=== PATIENT | female | born 1990 | race Caucasian/White ===

== ENCOUNTER 2024-05-28 16:13 | Outpatient (RCR) | payer BC, SELFPAY ==
--- OUTSIDE RECORDS SUMMARY | 2024-05-28 17:39 | XMS_ITS | Clinical Summary ---
Author Organization [facility] Address [address] [address] Phone Care Team Providers Care Braiding Machine Operator Name Role Phone Zac West MD Primary Care Provider +1 -[phone] Allergies No known active allergies Medications cholecalciferol (VITAMIN D-3) 400 unit capsule Act bradford fish oil-dha-epa 1,200144-216 mg capsule Take by mouth Active Active Problems Problem Noted Date Diagnosed Date Physical exam, annual 05/26/2023 Assessment & Plan (05/26/2023 4:26 PM CDT): Preventive exam; reviewed recommended preventive screenings and vaccinations. Encourage annual flu vaccine. Wear sunscreen/protective clothing when outdoors. Referral placed to genetics for further evaluation and recommendation. As of now recommend mammogram at age 40 and colonoscopy at age 45. Due for Pap 2026. Patient is a nonsmoker, social alcohol use only. Lipid screening 05/26/2023 Assessment & Plan (05/26/2023 4:28 PM CDT): Reviewed labs today with patient, cholesterol screening was normal. Encounter for well woman carl bear with routine gynecological exam 02/10/2022 Assessment & Plan (02/10/2022 10:54 AM ELECTRICAL TECH/PROJECT MANAGER): WWE: pap & breast exam completed today. Will call w/pap results when received. Instructed in SBE. To perform monthly in shower; preferably after menses. Aware that she may have some blood tinged discharge with wiping today after pap. Cervical cancer screening 02/10/2022 Assessment & Plan (02/10/2022 10:54 AM ELECTRICAL TECH/PROJECT MANAGER): No history of abnormal pap. Vitamin D deficiency 12/18/2021 Assessment & Plan (05/26/2023 4:27 PM CDT): Continues vitamin d supplement. Family history of Hall syndrome 12/18/2021 Assessment & Plan (05/26/2023 4:26 PM CDT): Updated referral to genetic counselor. No 1st relative with colon or breast cancer. Assessment & Plan (02/10/2022 10:55 AM ELECTRICAL TECH/PROJECT MANAGER): Previously referred to genetic counselor. No first degree relative with colon or breast cancer. Immunizations Immunization Administration Dates Next Due Influenza, Quadrivalent, Spl it, Preservative Free, Intramuscular 12/18/2021 Influenza, Unspecified 05/26/2023(Deferr ed: Patient Refused),11/14/2022(Deferred: Patient Refused),11/14/2020(Deferred: Patient Refused) Rho (D) Immune Globulin, IV or IM 04/07/2015, Family History Medical History Relation Name Comments Hypertension Father Prostate cancer Father Diabetes Mother Hypertension Mother Thyroid disease Mother Hall Syndrome Other Relation Name Status Comments Father Alive Mother Alive Other Social History Tobacco Use Types Packs/Day Years Used Date Smoking Tobacco: Former Cigarettes Q uit: 2018 Smokeless Tobacco: Never Tobacco Cessation:Counseling Given: Not Answered AUDIT-C Answer Date Recorded Q1: How often do you have a drink containing alc ohol? 2-4 times a month 12/18/2021 Average Number of Drinks Not on file 022 Frequency of Binge Drinking Not on file 05/2021 PHQ-2 Answer Date Recorded PHQ-2 Total Score (If total score is 3 or more points, staff should administer the PHQ-9) 0 05/26/2023 Personal Safety Answer Date Recorded Getting School Help Needed Not on file 02/14 Comments Unknown Sex and Gender Information Value Date Recorded Sex Assigned at Not on file Legal Sex Female 9:20 AM CDT Gender Identity Not on file Sexual Orientation Not on file Obstetrics History Last Filed Vital Signs Vital Sign Reading Time Taken Comments Blood Pressure 128/82 05/26/2023 3:48 PM CDT Pulse 90 05/26/2023 3:48 PM CDT Temperature 36.7 C (98 F) 05/26/2023 3:48 PM CDT Respiratory Rate 16 05/26/2023 3:48 PM CDT Oxygen Saturation 98% 05/26/2023 3:48 PM CDT Inhaled Oxygen Concentration - - Weight 61.5 kg (135 lb 9.6 oz) 05/26/2023 3:48 P M CDT Height 154.9 cm (5' 0.98) 05/26/2023 3:48 PM CD T Body Mass Index 25.63 05/26/2023 3:48 PM CDT Plan of Treatment Health Maintenance Due Date Last Done Comments Hepatitis C Screening 1990 DTaP/Tdap/Td Vaccine (1 - Tdap) 2001 Varicella Vaccines (1 of 2 - 13+ 2-dose series) 2003 Hepatitis B Screening 2008 Covid-19 Vaccine (3 - 2023-2 5 season) 2023 05/04/2020, 04/13/2020 Depression Screening 05/25/2024 05/26/2023, 02/10/2022, 12/18/2021 Regular Well Visit/Exam 18-64 05/25/2024, 02/10/2022 Influenza Vaccine (Season Ended) 2024 12/18/2021 Cervical Cancer Screening 02/10/2027 02/10/2022 HPV Vaccines Aged Out No longer eligi ble based on patient's age to complete this topic Pneumococcal vaccine <65 Aged Out No longer eligible based on patient's age to complete this topic Procedures Procedure Name Priority Date/Time Associated Diagnosis Comments PAP AND HIGH RISK HPV, REFLEX TO GENOTYPING Routine 02/10/2022 9:16 AM ELECTRICAL TECH/PROJECT MANAGER Encounter for well woman exam with routine gynecological exam Cervical cancer screening from Last 3 Months or Most Recently Relevant to Health Maintenance Results * Pap and High Risk HPV, reflex to Genotyping (02/10/2022 9:16 AM ELECTRICAL TECH/PROJECT MANAGER) Thin prep (Pap test) 02/10/2022 9:16 AM ELECTRICAL TECH/PROJECT MANAGER 02/10/2022 9:16 AM ELECTRICAL TECH/PROJECT MANAGER Narrative PATHOLOGY CH - 02/12/2022 4:20 PM ELECTRICAL TECH/PROJECT MANAGER [facility] Department of Pathology [address] [place] [address] Final Report with Addendum Note to Patients: This report may contain a detailed description of human tissue sent by a health care provider to the laboratory for pathologic evaluation. The content of this report is essential for diagnosis and may provide important critical findings. This information may be unfamiliar to patients to review without a medical professional present. It is advised that the patient review this report in the presence of a health care provider who can answer questions and explain the details. Patient Name: MADISYN GIBBONS Address: [address] [place] [address]- Gender: F : 1990 (Age: 31) Service: Location: N : [id number] [facility] #: [id number] Patient Type: SPECIMEN Taken: 02/10/2022 Received: 02/10/2022 Accessioned:: 02/11/2022 Reported: 02/12/2022 Physician(s): Ariella Masterson., F.N.P. Ariella Masterson., F.N.P. Diagnosis: Source of Specimen: SCREENING THIN PREP IMAGED PAP w/ HPV Specimen Adequacy: - Satisfactory for evaluation; endocervical/transformation zone component present General Category: - Negative for intraepithelial lesion or malignancy Interpretation/Results: - Numerous inflammatory cells present NIRAV Nagel(ASCP) Report Electronically Reviewed and Signed Out By NIRAV Nagel(ASCP) 02/12/2022 16:20:47Addenda: HPV Test Interpretation NEGATIVE for types 16, 18, 31, 33, 35, 39, 45, 51, 52, 56, 58, 59, 66 and 68. Test performed utilizing Gen-Probe Aptima assay. NIRAV Nagel(ASCP)Report Electronically Reviewed and Signed Out By NIRAV Nagel(ASCP) 02/12/2022 15:14:06 Specimen(s) Received: A: SCREENING THIN PREP IMAGED PAP w/ HPV Clinical History: Last Menstrual Period: 02/03/22 Menstrual History: Regular Cycles The Pap test is a screening test used to aid in the detection of cervical cancer and its precursors. It should not be the sole means by which malignant and premalignant lesions are diagnosed. Both false negative and false positive results may occur. It also has poor sensitivity for the detection of endometrial lesions and should not be used to evaluate suspected endometrial abnormalities. For these reasons it is most important to obtain Pap tests at regular intervals. The performance characteristics of some immunohistochemical stains, fluorescence in-situ hybridization tests and immunophenotyping by flow cytometry cited in this report (if any) were determined by the Surgical Pathology Department at [facility] as part of an ongoing director of quality improvement program and in compliance with federally mandated regulations drawn from the Clinical Laboratory Improvement Act of 1988 (CLIA '88). Some of these tests rely on the use of analyte specific reagents and are subject to specific labeling requirements by the US Food and Drug Administration. Such diagnostic tests may only be performed in a facility that is certified by the Department of Health and Human Services as a high complexity laboratory under CLIA '88. The FDA has determined that such clearance or approval is not necessary. This test is used for clinical purposes. It should not be regarded as investigational or for research. Nevertheless, federal rules concerning the medical use of analyte specific reagents require that the following disclaimer be attached to the report: This test was developed and its performance characteristics determined by the Surgical Pathology Department [facility]. It has not been cleared or approved by the U. S. Food and Drug Administration. Ariella Masterson NP LAB CYTOLOGY ORDERABLES [facility] al Result PATHOLOGY [address] [address] from Last 3 Months or Most Recently Relevant to Health Maintenance [place] [place] [address] [employer] [place] Care Teams Braiding Machine Operator Relationship Specialty Start Date End Date [place]ac [place] [address] PCP - General Family Medicine 12/18/21
--- OUTSIDE RECORDS SUMMARY | 2024-05-28 17:39 | XMS_ITS | Referral Summary ---
Author Organization [facility] Address [address] [facility] [address] [place] [address] Phone Care Team Providers Care Reinsurance Accountant Name Role Phone Zac West MD Primary Care Provider +1 -[phone] Allergies No known active allergies Medications cholecalciferol [...] 02/10/2022 Assessment & Plan (02/10/2022 10:54 AM FIELD CROP HARVEST WORKER): WWE: pap & breast exam completed today. Will call w/pap results when received. Instructed in SBE. To perform monthly in shower; preferably after menses. Aware that she may have some blood tinged discharge with wiping today after pap. Cervical cancer screening 02/10/2022 Assessment & Plan (02/10/2022 10:54 AM FIELD CROP HARVEST WORKER): No history of abnormal pap. Vitamin D deficiency 12/18/2021 Assessment & Plan (05/26/2023 4:27 PM CDT): Continues vitamin d supplement. Family history of Hall syndrome 12/18/2021 Assessment & Plan (05/26/2023 4:26 PM CDT): Updated referral to genetic counselor. No 1st relative with colon or breast cancer. Assessment & Plan (02/10/2022 10:55 AM FIELD CROP HARVEST WORKER): Previously referred to genetic counselor. No first degree relative with colon or breast cancer. Immunizations Immunization Administration Dates Next Due Influenza, Quadrivalent, Spl it, Preservative Free, Intramuscular 12/18/2021 Influenza, Unspecified 05/26/2023(Deferr ed: Patient Refused),11/14/2022(Deferred: Patient Refused),11/14/2020(Deferred: Patient Refused) Rho (D) Immune Globulin, IV or IM 04/07/2015, Social History Tobacco Use Types Packs/Day Years [...] on file Sexual Orientation Not on file Last Filed Vital Signs Vital Sign Reading [...] 05/26/2023 3:48 PM CDT Plan of Treatment Not on file Procedures Procedure Name Priority Date/Time Associated Diagnosis Comments PAP AND HIGH RISK HPV, REFLEX TO GENOTYPING Routine 02/10/2022 9:16 AM FIELD CROP HARVEST WORKER Encounter for well woman exam with routine gynecological exam Cervical cancer screening from Last 3 Months or Most Recently Relevant to Health Maintenance Results * Pap and High Risk HPV, reflex to Genotyping (02/10/2022 9:16 AM FIELD CROP HARVEST WORKER) Thin prep (Pap test) 02/10/2022 9:16 AM FIELD CROP HARVEST WORKER 02/10/2022 9:16 AM FIELD CROP HARVEST WORKER Narrative PATHOLOGY CH - 02/12/2022 4:20 PM FIELD CROP HARVEST WORKER [facility] Department of Pathology [address] [place] [address] Final Report with Addendum Note to Patients: [...] the details. Patient Name: MADISYN GIBBONS Address: [address] [place] [address]- Gender: F : 1990 (Age: 31) Service: Location: [facility] #: [id number] Patient Type: SPECIMEN Taken: 02/10/2022 Received: 02/10/2022 Accessioned:: 02/11/2022 Reported: 02/12/2022 Physician(s): Lisset Martin F.N.P. Diagnosis: Source of Specimen: SCREENING THIN [...] Nagel(ASCP)Report Electronically Reviewed and Signed Out By ASUNCION NagelASCP) 02/12/2022 15:14:06 Specimen(s) Received: A: SCREENING THIN [...] determined by the Surgical Pathology Department at [facility] as part of an ongoing quality control auditor program and in compliance with federally mandated [...] characteristics determined by the Surgical Pathology Department [facility]. It has not been cleared or approved by the U. S. Food and Drug Administration. Ariella Masterson NP LAB [place]TOLOGY [place] [address] [place] [address] from Last 3 Months or Most Recently Relevant to Health Maintenance Insurance [employer] [place] [employer] [place] Care Teams Reinsurance Accountant Relationship Specialty Start Date End Date Zac West MD [address] [place] [address] PCP - General Family Medicine 12/18/21
[2024-05-29] MEDS: RHO(D) IMMUNE GLOBULIN 300 MCG/2 ML SYRINGE IM (17:23)
== END 2024-08-26 23:59 | disposition home or self-care (01) ==
LOC: ANHLAB 16:13
PROVIDERS: PCP Family Medicine Adolescent Medicine; Visit Provider Obstetrics & Gynecology
DX: Z36.89 Encounter for other specified antenatal screening (principal); Z29.13 Encounter for prophylactic Rho(D) immune globulin
CPT/HCPCS: 36415; 85461; 86850; 86900; 86901; 90384; 96372; J2790

== ENCOUNTER 2024-06-19 15:27 | Outpatient (RCR) | payer BC, SELFPAY | END 2024-09-03 11:10 | disposition home or self-care (01) | LOC: ANHDMC 15:27 | PROVIDERS: PCP Family Medicine Adolescent Medicine; Visit Provider Obstetrics & Gynecology | DX: O24.319 Unspecified pre-existing diabetes mellitus in pregnancy, unspecified trimester (principal); Z3A.00 Weeks of gestation of pregnancy not specified; Z71.89 Other specified counseling | CPT/HCPCS: G0108 ==

== ENCOUNTER 2024-07-24 17:07 | Outpatient (RCR) | payer BC, SELFPAY ==
[2024-07-19 16:34] VITALS: BP 132/77; PULSE 78
[2024-07-24 17:44] LABS: Add Urine Microscopic? YES; Appearance Urine Clear (Clear); Bacteria Urine None Seen /hpf; Bilirubin Urine Negative (Negative); Blood Urine Negative (Negative); Color Urine Yellow (Yellow); Glucose Urine UA Negative (Negative); Ketones Urine Trace mg/dL (Negative); Leukocyte Esterase Ur Trace LEU/UL (Negative); Nitrate Urine Negative (Negative); Non Pathogenic Casts 0-2; Protein Urine 3+ mg/dL (Negative); RBC Urine 0-2 /hpf (0-2); Specific Grav Ur 1.016 (1.001-1.035); Squamous Epithelial Cell Urine Few /hpf (Few)
[2024-07-24 17:46] LABS: Basophils Percent Auto 0.2 % (0.2-1.2); Eosinophils Absolute Auto 0.1 K/mm3 (0-0.3); Eosinophils Percent Auto 0.5 % (0-4.4); Hematocrit 32.1 % (37.0-47.0); Hemoglobin 10.9 g/dL (12.0-15.0); Immature Granulocyte Absolute 0.07 K/mm3 (0.00-0.031); Immature Granulocyte Percent A 0.7 % (0-0.5); Lymphocytes Absolute Auto 2.12 K/mm3 (0.9-3.2); Lymphocytes Percent Auto 20.8 % (18.3-44.2); Mean Corpuscular Hemoglobin 30.5 pg (26-34); Mean Corpuscular Volume 89.9 fl (80-100); Mean Platelet Volume 11.5 fl (7.4-10.4); Monocytes Absolute Auto 0.9 K/mm3 (0.1-0.6); Monocytes Percent Auto 9.2 % (2.6-8.5); Neutrophils Percent Auto 68.6 % (45.5-73.1); Platelet Count Result 163 k/mm3 (150-375); Red Blood Count 3.57 M/mm3 (4.2-5.4); Red Cell Distribution Width 13.3 % (11.5-14.5); White Blood Count 10.2 K/mm3 (4.5-10.0)
[2024-07-24 17:53] LABS: Creatinine Urine 50.3 mg/dL
[2024-07-24 18:07] LABS: Alanine Aminotransferase 20 U/L (6-35); Albumin Level 3.4 g/dL (3.5-5.1); Alkaline Phosphatase 137 U/L (38-126); Anion Gap 7 mmol/L (4-12); Aspartate Amino Transferase 30 U/L (14-36); Bilirubin,Total 0.4 mg/dL (0.2-1.3); Blood Urea Nitrogen 17 mg/dL (7-17); Calcium 9.1 mg/dL (8.4-10.2); Carbon Dioxide 17 mmol/L (22-30); Chloride 107 mmol/L (98-107); Estimated Glomerular Filt Rate > 60; Glucose 79 mg/dL (65-110); Potassium 4.1 mmol/L (3.4-5.0); Sodium 131 mmol/L (137-145); Total Protein 6.1 g/dL (6.3-8.2); Uric Acid 6.9 mg/dL (2.5-7.5)
[2024-07-24 18:12] VITALS: BP 162/84; PULSE 67
[2024-07-24 18:51] LABS: Total Protein Urine Random 256 mg/dL; Ur Ttl Prot Creatinine Ratio 5.09 mg/mg (0-0.20)
--- NOTE | 2024-07-24 19:26 | PC.NURSE ---
Dr. Johnson responded to page. notified of patients lab results and blood pressures at this time. New orders received to send patient home with a 24 hour urine to be brought back tomorrow.
--- NOTE | 2024-07-24 19:45 | PC.NURSE ---
24 hour urine discussed with patient and questions answered at this time. Patient feeling comfortable going home.
== END 2024-08-04 07:04 | disposition home or self-care (01) ==
LOC: ANHOBOP 17:07
PROVIDERS: PCP Family Medicine Adolescent Medicine; Visit Provider Obstetrics & Gynecology
DX: O24.419 Gestational diabetes mellitus in pregnancy, unspecified control (principal); Z3A.35 35 weeks gestation of pregnancy; Z3A.36 36 weeks gestation of pregnancy
CPT/HCPCS: 36415; 59025; 80053; 81001; 82570; 84156; 84550; 85025; 87086

== ENCOUNTER 2024-07-25 20:06 | Outpatient (NON) | payer BC, SELFPAY ==
--- OUTSIDE RECORDS SUMMARY | 2024-07-25 20:12 | XMS_ITS | Referral Summary ---
Author Organization [facility] Address [address] [facility] [address] [place] [address] Phone Care Team Providers Care Pcb Designer Name Role Phone Zac West MD Primary Care Provider +1 -[phone] Allergies No known active allergies Medications cholecalciferol [...] 02/10/2022 Assessment & Plan (02/10/2022 10:54 AM JIG BORE OPERATOR): WWE: pap & breast exam completed today. Will call w/pap results when received. Instructed in SBE. To perform monthly in shower; preferably after menses. Aware that she may have some blood tinged discharge with wiping today after pap. Cervical cancer screening 02/10/2022 Assessment & Plan (02/10/2022 10:54 AM JIG BORE OPERATOR): No history of abnormal pap. Vitamin D deficiency 12/18/2021 Assessment & Plan (05/26/2023 4:27 PM CDT): Continues vitamin d supplement. Family history of Hall syndrome 12/18/2021 Assessment & Plan (05/26/2023 4:26 PM CDT): Updated referral to genetic counselor. No 1st relative with colon or breast cancer. Assessment & Plan (02/10/2022 10:55 AM JIG BORE OPERATOR): Previously referred to genetic counselor. No first [...] REFLEX TO GENOTYPING Routine 02/10/2022 9:16 AM JIG BORE OPERATOR Encounter for well woman exam with routine gynecological exam Cervical cancer screening from Last 3 Months or Most Recently Relevant to Health Maintenance Results * Pap and High Risk HPV, reflex to Genotyping (02/10/2022 9:16 AM JIG BORE OPERATOR) Thin prep (Pap test) 02/10/2022 9:16 AM JIG BORE OPERATOR 02/10/2022 9:16 AM JIG BORE OPERATOR Narrative PATHOLOGY CH - 02/12/2022 4:[address] [facility] Department of Pathology [address] [place] [address] Final Report with Addendum Note to Patients: [...] the details. Patient Name: MADISYN GIBBONS Address: [address] [place] [address]- Gender: F : 1990 (Age: 31) Service: Location: [facility] #: [id number] Patient Type: SPECIMEN Taken: 02/10/2022 Received: 02/10/2022 [...] determined by the Surgical Pathology Department at [facility] as part of an ongoing chemistry quality control analyst program and in compliance with federally mandated [...] characteristics determined by the Surgical Pathology Department [facility]. It has not been cleared or approved by the U. S. Food and Drug Administration. Ariella Masterson NP LAB CYTOLOGY [place] [address] [place] [address] from Last 3 Months or Most Recently Relevant to Health Maintenance Insurance [employer] [place] [employer] [place] Care Teams Pcb Designer Relationship Specialty Start Date End Date Zac West MD [address] [place] [address] PCP - General Family Medicine 12/18/21
--- OUTSIDE RECORDS SUMMARY | 2024-07-25 20:12 | XMS_ITS | Clinical Summary ---
Author Organization [facility] Address [address] [address] Phone Care Team Providers Care Operational Communication Chief Name Role Phone Zac West MD Primary Care Provider +1 -[phone] Allergies No known active allergies Medications cholecalciferol [...] 02/10/2022 Assessment & Plan (02/10/2022 10:54 AM QUALITY CONTROL MICROBIOLOGY SUPERVISOR): WWE: pap & breast exam completed today. Will call w/pap results when received. Instructed in SBE. To perform monthly in shower; preferably after menses. Aware that she may have some blood tinged discharge with wiping today after pap. Cervical cancer screening 02/10/2022 Assessment & Plan (02/10/2022 10:54 AM QUALITY CONTROL MICROBIOLOGY SUPERVISOR): No history of abnormal pap. Vitamin D deficiency 12/18/2021 Assessment & Plan (05/26/2023 4:27 PM CDT): Continues vitamin d supplement. Family history of Hall syndrome 12/18/2021 Assessment & Plan (05/26/2023 4:26 PM CDT): Updated referral to genetic counselor. No 1st relative with colon or breast cancer. Assessment & Plan (02/10/2022 10:55 AM QUALITY CONTROL MICROBIOLOGY SUPERVISOR): Previously referred to genetic counselor. No first [...] REFLEX TO GENOTYPING Routine 02/10/2022 9:16 AM QUALITY CONTROL MICROBIOLOGY SUPERVISOR Encounter for well woman exam with routine gynecological exam Cervical cancer screening from Last 3 Months or Most Recently Relevant to Health Maintenance Results * Pap and High Risk HPV, reflex to Genotyping (02/10/2022 9:16 AM QUALITY CONTROL MICROBIOLOGY SUPERVISOR) Thin prep (Pap test) 02/10/2022 9:16 AM QUALITY CONTROL MICROBIOLOGY SUPERVISOR 02/10/2022 9:16 AM QUALITY CONTROL MICROBIOLOGY SUPERVISOR Narrative PATHOLOGY CH - 02/12/2022 4:20 PM QUALITY CONTROL MICROBIOLOGY SUPERVISOR [facility] Department of Pathology [address] [place] [address] Final Report with Addendum Note to Patients: [...] the details. Patient Name: MADISYN GIBBONS Address: [address] [place] [address]- Gender: F : 1990 (Age: 31) Service: Location: N : [id number] [facility] #: [id number] Patient Type: SPECIMEN Taken: 02/10/2022 Received: 02/10/2022 [...] determined by the Surgical Pathology Department at [facility] as part of an ongoing quality control lab technician program and in compliance with federally mandated [...] characteristics determined by the Surgical Pathology Department [facility]. It has not been cleared or approved by the U. S. Food and Drug Administration. Ariella Masterson NP LAB CYTOLOGY ORDERABLES [facility] al Result PATHOLOGY [address] [place] [address] from Last 3 Months or Most Recently Relevant to Health Maintenance [place] [address] [email or web address] [place] Care Teams Operational Communication Chief Relationship Specialty Start Date End Date [place] [address] PCP - General Family Medicine 12/18/21
[2024-07-25 21:15] LABS: Collection Time Urine 24 HOURS
[2024-07-25 21:37] LABS: Patient Weight 160 Lbs; Total Volume 24 Hour Urine 1150 ml
[2024-07-25 21:49] LABS: Creatinine Clearance Urine 76.9 ml/min (75-125); Creatinine Urine 66.7 mg/dL; Total Protein Urine 24 Hr 1184 mg/24hr (28-141); Total Protein Urine Random 103 mg/dL
== END 2024-07-25 20:07 | disposition home or self-care (01) ==
LOC: ANHOBOP 20:11
PROVIDERS: PCP Family Medicine Adolescent Medicine; Visit Provider Obstetrics & Gynecology
DX: O13.9 Gestational [pregnancy-induced] hypertension without significant proteinuria, unspecified trimester (principal); Z3A.00 Weeks of gestation of pregnancy not specified
CPT/HCPCS: 81050; 82575; 84156

== ENCOUNTER 2024-07-27 21:18 | Outpatient (CLI) | payer BC, SELFPAY ==
--- OUTSIDE RECORDS SUMMARY | 2024-07-27 21:24 | XMS_ITS | Clinical Summary ---
Author Organization [facility] Address [address] [address] Phone Care Team Providers Care Pole Frame Construction Worker Name Role Phone Zac West MD Primary Care Provider +1 -[phone] Allergies No known active allergies Medications cholecalciferol [...] 02/10/2022 Assessment & Plan (02/10/2022 10:54 AM GUNNERY/ORDNANCE OFFICER): WWE: pap & breast exam completed today. Will call w/pap results when received. Instructed in SBE. To perform monthly in shower; preferably after menses. Aware that she may have some blood tinged discharge with wiping today after pap. Cervical cancer screening 02/10/2022 Assessment & Plan (02/10/2022 10:54 AM GUNNERY/ORDNANCE OFFICER): No history of abnormal pap. Vitamin D deficiency 12/18/2021 Assessment & Plan (05/26/2023 4:27 PM CDT): Continues vitamin d supplement. Family history of Hall syndrome 12/18/2021 Assessment & Plan (05/26/2023 4:26 PM CDT): Updated referral to genetic counselor. No 1st relative with colon or breast cancer. Assessment & Plan (02/10/2022 10:55 AM GUNNERY/ORDNANCE OFFICER): Previously referred to genetic counselor. No first [...] REFLEX TO GENOTYPING Routine 02/10/2022 9:16 AM GUNNERY/ORDNANCE OFFICER Encounter for well woman exam with routine gynecological exam Cervical cancer screening from Last 3 Months or Most Recently Relevant to Health Maintenance Results * Pap and High Risk HPV, reflex to Genotyping (02/10/2022 9:16 AM GUNNERY/ORDNANCE OFFICER) Thin prep (Pap test) 02/10/2022 9:16 AM GUNNERY/ORDNANCE OFFICER 02/10/2022 9:16 AM GUNNERY/ORDNANCE OFFICER Narrative PATHOLOGY CH - 02/12/2022 4:20 PM GUNNERY/ORDNANCE OFFICER [facility] Department of Pathology [address] [place] [address] Final Report with Addendum Note to Patients: [...] the details. Patient Name: MADISYN GIBBONS Address: [address] [place] [address]- Gender: F : 1990 (Age: 31) Service: Location: N : [id number] [facility] #: [id number] Patient Type: SPECIMEN Taken: 02/10/2022 Received: 02/10/2022 [...] 68. Test performed utilizing Gen-Probe Aptima assay. INRAV Nagel(ASCP)Report Electronically Reviewed and Signed Out By [...] determined by the Surgical Pathology Department at [facility] as part of an ongoing quality officer program and in compliance with federally mandated [...] characteristics determined by the Surgical Pathology Department [facility]. It has not been cleared or approved by the U. S. Food and Drug Administration. Ariella Masterson NP LAB CYTOLOGY ORDERABLES [facility] al Result PATHOLOGY [address] [place] [address] from Last 3 Months or Most Recently Relevant to Health Maintenance [place] [address] [place] [address] [employer] [place] Care Teams Pole Frame Construction Worker Relationship Specialty Start Date End Date [place]ac [place] [address] PCP - General Family Medicine 12/18/21
--- OUTSIDE RECORDS SUMMARY | 2024-07-27 21:24 | XMS_ITS | Referral Summary ---
Author Organization [facility] Address [address] [facility] [address] [place] [address] Phone Care Team Providers Care Carcass Splitter Name Role Phone Zac West MD Primary Care Provider +1 [phone] Allergies No known active allergies Medications cholecalciferol [...] 02/10/2022 Assessment & Plan (02/10/2022 10:54 AM CATHEAD OPERATOR): WWE: pap & breast exam completed today. Will call w/pap results when received. Instructed in SBE. To perform monthly in shower; preferably after menses. Aware that she may have some blood tinged discharge with wiping today after pap. Cervical cancer screening 02/10/2022 Assessment & Plan (02/10/2022 10:54 AM CATHEAD OPERATOR): No history of abnormal pap. Vitamin D deficiency 12/18/2021 Assessment & Plan (05/26/2023 4:27 PM CDT): Continues vitamin d supplement. Family history of Hall syndrome 12/18/2021 Assessment & Plan (05/26/2023 4:26 PM CDT): Updated referral to genetic counselor. No 1st relative with colon or breast cancer. Assessment & Plan (02/10/2022 10:55 AM CATHEAD OPERATOR): Previously referred to genetic counselor. No [...] REFLEX TO GENOTYPING Routine 02/10/2022 9:16 AM CATHEAD OPERATOR Encounter for well woman exam with routine gynecological exam Cervical cancer screening from Last 3 Months or Most Recently Relevant to Health Maintenance Results * Pap and High Risk HPV, reflex to Genotyping (02/10/2022 9:16 AM CATHEAD OPERATOR) Thin prep (Pap test) 02/10/2022 9:16 AM CATHEAD OPERATOR 02/10/2022 9:16 AM CATHEAD OPERATOR Narrative PATHOLOGY CH - 02/12/2022 4:20 PM CATHEAD OPERATOR [facility] Department of Pathology [address] [place] [address] Final Report with Addendum Note to Patients: [...] the details. Patient Name: MADISYN GIBBONS Address: [address] [place] [address]- Gender: F : 1990 (Age: 31) Service: Location: [facility] #: [id number] Patient Type: SPECIMEN Taken: 02/10/2022 Received: 02/10/2022 [...] determined by the Surgical Pathology Department at [facility] as part of an ongoing senior supplier quality engineer program and in compliance with federally mandated [...] characteristics determined by the Surgical Pathology Department [facility]. It has not been cleared or approved by the U. S. Food and Drug Administration. Ariella Masterson NP LAB CYTOLOGY [place] [address] [place] [address] from Last 3 Months or Most Recently Relevant to Health Maintenance [place] [employer] [place] [employer] [place] [place] Care Teams Carcass Splitter Relationship Specialty Start Date End Date Zac West MD [address] [place] [address] PCP - General Family Medicine 12/18/21
[2024-07-27 21:44] VITALS: BP 164/91; PULSE 81
[2024-07-27 21:51] LABS: Basophils Percent Auto 0.2 % (0.2-1.2); Eosinophils Absolute Auto 0.1 K/mm3 (0-0.3); Eosinophils Percent Auto 0.6 % (0-4.4); Hematocrit 34.3 % (37.0-47.0); Hemoglobin 11.7 g/dL (12.0-15.0); Immature Granulocyte Absolute 0.06 K/mm3 (0.00-0.031); Immature Granulocyte Percent A 0.5 % (0-0.5); Lymphocytes Absolute Auto 2.95 K/mm3 (0.9-3.2); Mean Corpuscular HGB Conc 34.1 g/dl (32-36); Mean Corpuscular Hemoglobin 30.5 pg (26-34); Mean Corpuscular Volume 89.3 fl (80-100); Mean Platelet Volume 11.3 fl (7.4-10.4); Monocytes Absolute Auto 1.2 K/mm3 (0.1-0.6); Monocytes Percent Auto 10.5 % (2.6-8.5); Neutrophils Percent Auto 62.2 % (45.5-73.1); Platelet Count Result 181 k/mm3 (150-375); Red Blood Count 3.84 M/mm3 (4.2-5.4); Red Cell Distribution Width 13.4 % (11.5-14.5); White Blood Count 11.3 K/mm3 (4.5-10.0)
[2024-07-27 21:58] LABS: Add Urine Microscopic? YES; Appearance Urine Clear (Clear); Bacteria Urine None Seen /hpf; Bilirubin Urine Negative (Negative); Blood Urine Negative (Negative); Color Urine Yellow (Yellow); Glucose Urine UA Negative (Negative); Ketones Urine Negative (Negative); Leukocyte Esterase Ur Trace LEU/UL (Negative); Nitrate Urine Negative (Negative); Non Pathogenic Casts 0-2; Protein Urine 3+ mg/dL (Negative); RBC Urine 0-2 /hpf (0-2); Squamous Epithelial Cell Urine Few /hpf (Few); Urobilinogen Urine 0.2 mg/dL (<2.0); WBC Urine 0-5 /hpf (0-3); pH Urine 6.5 (5.0-9.0)
[2024-07-27 22:00] VITALS: BP 168/98; PULSE 73
[2024-07-27 22:02] LABS: Alanine Aminotransferase 17 U/L (6-35); Albumin Level 3.5 g/dL (3.5-5.1); Alkaline Phosphatase 145 U/L (38-126); Anion Gap 7 mmol/L (4-12); Aspartate Amino Transferase 24 U/L (14-36); Bilirubin,Total 0.3 mg/dL (0.2-1.3); Blood Urea Nitrogen 17 mg/dL (7-17); Carbon Dioxide 20 mmol/L (22-30); Chloride 106 mmol/L (98-107); Estimated Glomerular Filt Rate > 60; Glucose 88 mg/dL (65-110); Potassium 4.5 mmol/L (3.4-5.0); Sodium 133 mmol/L (137-145); Total Protein 6.3 g/dL (6.3-8.2); Uric Acid 5.9 mg/dL (2.5-7.5)
[2024-07-27 22:04] LABS: Creatinine Urine 25.4 mg/dL
[2024-07-27 22:15] VITALS: BP 144/90; PULSE 86
[2024-07-27 22:26] LABS: Total Protein Urine Random 304 mg/dL; Ur Ttl Prot Creatinine Ratio 11.97 mg/mg (0-0.20)
[2024-07-27 22:30] VITALS: BP 147/93; PULSE 79
--- NOTE | 2024-07-27 22:39 | PC.NURSE ---
Call placed to Dr. Johnson, reported increased BP @ home 162/94, 172/110. No headache, vision changes, r sided pain, increased swelling. Labs, Vitals, FHR and CTX reported. Order to discharge pt home undelivered with plans to continue on for induction tuesday.
--- NOTE | 2024-07-27 22:48 | PC.NURSE ---
Pt discharged home undelivered per order from Dr. Johnson, discharge instructions explained to pt pre-e s/s discussed, pt stated understanding, all questions and concerns answered. Pt ambulated out of department with all belongings, S.O @ pt side.
== END 2024-07-27 22:48 | disposition home or self-care (01) ==
LOC: ANHOBOP 21:21 → ANHLDR 22:52
PROVIDERS: PCP Family Medicine Adolescent Medicine; Visit Provider Obstetrics & Gynecology
DX: O13.9 Gestational [pregnancy-induced] hypertension without significant proteinuria, unspecified trimester (principal); Z3A.00 Weeks of gestation of pregnancy not specified
CPT/HCPCS: 36415; 59025; 80053; 81001; 82570; 84156; 84550; 85025; 99199

== ENCOUNTER 2024-07-29 16:30 | Inpatient (IN) | payer BC, SELFPAY ==
[2024-07-29] VITALS (15 sets, daily range): BP systolic 135–170; BP diastolic 75–102; PULSE 72–101; RESP 16; TEMP 36.6
--- OUTSIDE RECORDS SUMMARY | 2024-07-29 16:40 | XMS_ITS | Clinical Summary ---
Author Organization [facility] Address [address] [address] Phone Care Team Providers Care Accreditation Manager Name Role Phone Zac West MD Primary Care Provider [phone] [phone] Allergies No known active allergies Medications cholecalciferol [...] 02/10/2022 Assessment & Plan (02/10/2022 10:54 AM PARAGLIDING INSTRUCTOR): WWE: pap & breast exam completed today. Will call w/pap results when received. Instructed in SBE. To perform monthly in shower; preferably after menses. Aware that she may have some blood tinged discharge with wiping today after pap. Cervical cancer screening 02/10/2022 Assessment & Plan (02/10/2022 10:54 AM PARAGLIDING INSTRUCTOR): No history of abnormal pap. Vitamin D deficiency 12/18/2021 Assessment & Plan (05/26/2023 4:27 PM CDT): Continues vitamin d supplement. Family history of Hall syndrome 12/18/2021 Assessment & Plan (05/26/2023 4:26 PM CDT): Updated referral to genetic counselor. No 1st relative with colon or breast cancer. Assessment & Plan (02/10/2022 10:55 AM PARAGLIDING INSTRUCTOR): Previously referred to genetic counselor. No first [...] REFLEX TO GENOTYPING Routine 02/10/2022 9:16 AM PARAGLIDING INSTRUCTOR Encounter for well woman exam with routine gynecological exam Cervical cancer screening from Last 3 Months or Most Recently Relevant to Health Maintenance Results * Pap and High Risk HPV, reflex to Genotyping (02/10/2022 9:16 AM PARAGLIDING INSTRUCTOR) Thin prep (Pap test) 02/10/2022 9:16 AM PARAGLIDING INSTRUCTOR 02/10/2022 9:16 AM PARAGLIDING INSTRUCTOR Narrative PATHOLOGY CH - 02/12/2022 4:20 PM PARAGLIDING INSTRUCTOR [facility] Department of Pathology [address] [place] [address] Final Report with Addendum Note to Patients: [...] the details. Patient Name: MADISYN GIBBONS Address: [address] [place] [address]- Gender: F : 1990 (Age: 31) Service: Location: N : [id number] [facility] #: [id number] Patient Type: SPECIMEN Taken: 02/10/2022 Received: 02/10/2022 [...] determined by the Surgical Pathology Department at [facility] as part of an ongoing senior quality manager program and in compliance with federally mandated [...] characteristics determined by the Surgical Pathology Department [facility]. It has not been cleared or approved by the U. S. Food and Drug Administration. Ariella Masterson NP LAB CYTOLOGY ORDERABLES [facility] al Result PATHOLOGY [address] [address] from Last 3 Months or Most Recently Relevant to Health Maintenance Insurance [place] [address] [employer] Care Teams Accreditation Manager Relationship Specialty Start Date End Date Zac West [place] [address] PCP - General Family Medicine 12/18/21
--- OUTSIDE RECORDS SUMMARY | 2024-07-29 16:40 | XMS_ITS | Referral Summary ---
Author Organization [facility] Address [address] [facility] [address] [place] [address] Phone Care Team Providers Care Sand Sifter Name Role Phone Zac West MD Primary Care Provider [phone] [phone] Allergies No known active allergies Medications cholecalciferol [...] 02/10/2022 Assessment & Plan (02/10/2022 10:54 AM WELL LOGGING CAPTAIN): WWE: pap & breast exam completed today. Will call w/pap results when received. Instructed in SBE. To perform monthly in shower; preferably after menses. Aware that she may have some blood tinged discharge with wiping today after pap. Cervical cancer screening 02/10/2022 Assessment & Plan (02/10/2022 10:54 AM WELL LOGGING CAPTAIN): No history of abnormal pap. Vitamin D deficiency 12/18/2021 Assessment & Plan (05/26/2023 4:27 PM CDT): Continues vitamin d supplement. Family history of Hall syndrome 12/18/2021 Assessment & Plan (05/26/2023 4:26 PM CDT): Updated referral to genetic counselor. No 1st relative with colon or breast cancer. Assessment & Plan (02/10/2022 10:55 AM WELL LOGGING CAPTAIN): Previously referred to genetic counselor. No first [...] REFLEX TO GENOTYPING Routine 02/10/2022 9:16 AM WELL LOGGING CAPTAIN Encounter for well woman exam with routine gynecological exam Cervical cancer screening from Last 3 Months or Most Recently Relevant to Health Maintenance Results * Pap and High Risk HPV, reflex to Genotyping (02/10/2022 9:16 AM WELL LOGGING CAPTAIN) Thin prep (Pap test) 02/10/2022 9:16 AM WELL LOGGING CAPTAIN 02/10/2022 9:16 AM WELL LOGGING CAPTAIN Narrative PATHOLOGY CH - 02/12/2022 4:20 PM WELL LOGGING CAPTAIN [facility] Department of Pathology [address] [place] [address] Final Report with Addendum Note to Patients: [...] the details. Patient Name: MADISYN GIBBONS Address: [address] [place] [address]- Gender: F : 1990 (Age: 31) Service: Location: [facility] #: [id number] Patient Type: SPECIMEN Taken: 02/10/2022 Received: 02/10/2022 [...] determined by the Surgical Pathology Department at [facility] as part of an ongoing quality lab technician program and in compliance with [...] characteristics determined by the Surgical Pathology Department [facility]. It has not been cleared or approved by the U. S. Food and Drug Administration. Ariella Masterson NP LAB CYTOLOGY [place] [address] [place] [address] from Last 3 Months or Most Recently Relevant to Health Maintenance [place] [employer] [place] [place] Care Teams Sand Sifter Relationship Specialty Start Date End Date Zac West MD [address] [place] [address] PCP - General Family Medicine 12/18/21
--- NOTE | 2024-07-29 17:52 | P.PNAN_ITS ---
Anes - Eval Pre Procedure Procedure: Labor epidural Date/Time: 07/29/24 17:52 Surgeon: chepe Preop Diagnosis: pain during labor Pre Op Diagnosis: IOL Patient Data Age: 34 Gender: F Height: Weight: Last Vital Signs Pulse 97 07/29/24 17:47 BP 155/95 H 07/29/24 17:47 Allergies Allergy/AdvReac Type Severity Reaction Status Date / Time No Known Allergies Allergy Unknown Verified 07/27/24 21:48 Home Medications ?Medication ?Instructions ?Recorded ?Confirmed ?Type vit no.95-ferrous 1 tablet PO DAILY 07/27/24 07/27/24 History fumarate 28 mg-folic acid 800 mcg tablet () Patient hx anesthesia problems: none Family hx anesthesia problems: none Results Review: All pre-operative results and documents have been reviewed as part of the pre- operative evaluation. [facility] Past Medical History Medical History (Updated 07/29/24 @ 17:53 by Elaine Gould CRNA) IUP (intrauterine ), incidental Obesity Gestational diabetes Family History Family History (Updated 07/27/24 @ 14:48 by Brenda Shultz RN) Father Hypertension Malignant neoplasm of prostate Diabetes 1.5, managed as type 2 Mother Hypertension Diabetes 1.5, managed as type 1 Grandparent Colon cancer Other Diabetes mellitus Prostate calculus Social History Social History Substance use: never Spiritual care concerns: No Exam Day of Procedure 07/29/24 17:52
--- OUTSIDE RECORDS SUMMARY | 2024-07-29 18:25 | XMS_ITS | Referral Summary ---
Author Organization [facility] Address [address] [facility] [address] [place] [address] Phone Care Team Providers Care Road Repairer Name Role Phone Zac West MD Primary Care Provider +1 [phone] Allergies No known active allergies Medications cholecalciferol [...] 02/10/2022 Assessment & Plan (02/10/2022 10:54 AM TECHNICAL RESEARCH SCIENTIST): WWE: pap & breast exam completed today. Will call w/pap results when received. Instructed in SBE. To perform monthly in shower; preferably after menses. Aware that she may have some blood tinged discharge with wiping today after pap. Cervical cancer screening 02/10/2022 Assessment & Plan (02/10/2022 10:54 AM TECHNICAL RESEARCH SCIENTIST): No history of abnormal pap. Vitamin D deficiency 12/18/2021 Assessment & Plan (05/26/2023 4:27 PM CDT): Continues vitamin d supplement. Family history of Hall syndrome 12/18/2021 Assessment & Plan (05/26/2023 4:26 PM CDT): Updated referral to genetic counselor. No 1st relative with colon or breast cancer. Assessment & Plan (02/10/2022 10:55 AM TECHNICAL RESEARCH SCIENTIST): Previously referred to genetic counselor. No first [...] REFLEX TO GENOTYPING Routine 02/10/2022 9:16 AM TECHNICAL RESEARCH SCIENTIST Encounter for well woman exam with routine gynecological exam Cervical cancer screening from Last 3 Months or Most Recently Relevant to Health Maintenance Results * Pap and High Risk HPV, reflex to Genotyping (02/10/2022 9:16 AM TECHNICAL RESEARCH SCIENTIST) Thin prep (Pap test) 02/10/2022 9:16 AM TECHNICAL RESEARCH SCIENTIST 02/10/2022 9:16 AM TECHNICAL RESEARCH SCIENTIST Narrative PATHOLOGY CH - 02/12/2022 4:20 PM TECHNICAL RESEARCH SCIENTIST [facility] Department of Pathology [address] [place] [address] Final Report with Addendum Note to Patients: [...] the details. Patient Name: MADISYN GIBBONS Address: [address] [place] [address]- Gender: F : 1990 (Age: 31) Service: Location: [facility] #: [id number] Patient Type: SPECIMEN Taken: 02/10/2022 Received: 02/10/2022 [...] determined by the Surgical Pathology Department at [facility] as part of an ongoing clinical quality analyst program and in compliance with federally [...] characteristics determined by the Surgical Pathology Department [facility]. It has not been cleared or approved by the U. S. Food and Drug Administration. Ariella Masterson NP LAB CYTOLOGY [place] [address] [place] [address] from Last 3 Months or Most Recently Relevant to Health Maintenance Insurance [employer] [place] [employer] [place] Care Teams Road Repairer Relationship Specialty Start Date End Date Zac West MD [address] [place] [address] PCP - General Family Medicine 12/18/21
--- OUTSIDE RECORDS SUMMARY | 2024-07-29 18:25 | XMS_ITS | Clinical Summary ---
Author Organization [facility] Address [address] [address] Phone Care Team Providers Care Barrel Raiser Name Role Phone Zac West MD Primary Care Provider +1 -[phone] Allergies No known active allergies Medications cholecalciferol [...] 02/10/2022 Assessment & Plan (02/10/2022 10:54 AM ELECTRICIAN MACHINE SHOP): WWE: pap & breast exam completed today. Will call w/pap results when received. Instructed in SBE. To perform monthly in shower; preferably after menses. Aware that she may have some blood tinged discharge with wiping today after pap. Cervical cancer screening 02/10/2022 Assessment & Plan (02/10/2022 10:54 AM ELECTRICIAN MACHINE SHOP): No history of abnormal pap. Vitamin D deficiency 12/18/2021 Assessment & Plan (05/26/2023 4:27 PM CDT): Continues vitamin d supplement. Family history of Hall syndrome 12/18/2021 Assessment & Plan (05/26/2023 4:26 PM CDT): Updated referral to genetic counselor. No 1st relative with colon or breast cancer. Assessment & Plan (02/10/2022 10:55 AM ELECTRICIAN MACHINE SHOP): Previously referred to genetic counselor. No first [...] REFLEX TO GENOTYPING Routine 02/10/2022 9:16 AM ELECTRICIAN MACHINE SHOP Encounter for well woman exam with routine gynecological exam Cervical cancer screening from Last 3 Months or Most Recently Relevant to Health Maintenance Results * Pap and High Risk HPV, reflex to Genotyping (02/10/2022 9:16 AM ELECTRICIAN MACHINE SHOP) Thin prep (Pap test) 02/10/2022 9:16 AM ELECTRICIAN MACHINE SHOP 02/10/2022 9:16 AM ELECTRICIAN MACHINE SHOP Narrative PATHOLOGY CH - 02/12/2022 4:20 PM ELECTRICIAN MACHINE SHOP [facility] Department of Pathology [address] [place] [address] Final Report with Addendum Note to Patients: [...] the details. Patient Name: MADISYN GIBBONS Address: [address] [place] [address]- Gender: F : 1990 (Age: 31) Service: Location: N : [id number] [facility] #: [id number] Patient Type: SPECIMEN Taken: 02/10/2022 Received: 02/10/2022 [...] determined by the Surgical Pathology Department at [facility] as part of an ongoing food quality tester program and in compliance with federally mandated [...] characteristics determined by the Surgical Pathology Department [facility]. It has not been cleared or approved by the U. S. Food and Drug Administration. Ariella Masterson NP LAB CYTOLOGY ORDERABLES [facility] al Result PATHOLOGY [address] [address] from Last 3 Months or Most Recently Relevant to Health Maintenance [place] [address] [employer] Care Teams Barrel Raiser Relationship Specialty Start Date End Date Zac West [place] [address] PCP - General Family Medicine 12/18/21
--- NOTE | 2024-07-29 18:30 | LDADM ---
This patient, Kiara Amin, was admitted to Labor/Delivery/Recovery 104 on 07/29/24 at 16:30. Plans for labor, pain management and were discussed with patient. Patient/family oriented to hospital policies and general routines including ID bracelet, bed and alarms, visiting hours, pain management, procedures, bathroom and other care routines, personal items, smoking policy, room service/diet and guest tray routines, infant security routines, and visiting hours. Patient/Family are encouraged to report perceived risks to care and to ask questions if they do not understand what they are told or what they should do. See [facility] for further documentation.
[2024-07-29] MEDS: DINOPROSTONE 10 MG VAG INSERT VAGINAL (19:03)
[2024-07-29 19:10] LABS: Basophils Percent Auto 0.2 % (0.2-1.2); Eosinophils Percent Auto 0.3 % (0-4.4); Hematocrit 33.6 % (37.0-47.0); Hemoglobin 11.4 g/dL (12.0-15.0); Immature Granulocyte Absolute 0.04 K/mm3 (0.00-0.031); Immature Granulocyte Percent A 0.4 % (0-0.5); Lymphocytes Absolute Auto 2.02 K/mm3 (0.9-3.2); Lymphocytes Percent Auto 21.4 % (18.3-44.2); Mean Corpuscular HGB Conc 33.9 g/dl (32-36); Mean Corpuscular Hemoglobin 29.9 pg (26-34); Mean Corpuscular Volume 88.2 fl (80-100); Mean Platelet Volume 11.8 fl (7.4-10.4); Monocytes Absolute Auto 0.7 K/mm3 (0.1-0.6); Monocytes Percent Auto 7.6 % (2.6-8.5); Neutrophils Absolute Auto 6.6 K/mm3 (1.3-6.7); Neutrophils Percent Auto 70.1 % (45.5-73.1); Platelet Count Result 189 k/mm3 (150-375); Red Blood Count 3.81 M/mm3 (4.2-5.4); Red Cell Distribution Width 13.4 % (11.5-14.5); White Blood Count 9.4 K/mm3 (4.5-10.0)
[2024-07-29] MEDS: LABETALOL HCL INJ 100 MG/20 ML VIAL 20 MG IV PUSH (19:20)
[2024-07-29 19:43] LABS: Alanine Aminotransferase 17 U/L (6-35); Albumin Level 3.4 g/dL (3.5-5.1); Alkaline Phosphatase 148 U/L (38-126); Anion Gap 5 mmol/L (4-12); Aspartate Amino Transferase 30 U/L (14-36); Bilirubin,Total 0.4 mg/dL (0.2-1.3); Blood Urea Nitrogen 14 mg/dL (7-17); Calcium 9.2 mg/dL (8.4-10.2); Carbon Dioxide 19 mmol/L (22-30); Chloride 108 mmol/L (98-107); Estimated Glomerular Filt Rate > 60; Glucose 127 mg/dL (65-110); Potassium 3.8 mmol/L (3.4-5.0); Sodium 132 mmol/L (137-145); Total Protein 6.1 g/dL (6.3-8.2); Uric Acid 6.1 mg/dL (2.5-7.5)
[2024-07-29 20:10] LABS: Syphilis IgG/IgM Antibody Non-Reactive (Nonreactive)
[2024-07-29 20:37] LABS: Creatinine Urine 244.6 mg/dL
[2024-07-29 20:40] LABS: Add Urine Microscopic? YES; Appearance Urine Clear (Clear); Bacteria Urine None Seen /hpf; Bilirubin Urine Negative (Negative); Blood Urine Negative (Negative); Color Urine Dark Yellow (Yellow); Glucose Urine UA Negative (Negative); Ketones Urine 1+ mg/dL (Negative); Leukocyte Esterase Ur Negative LEU/UL (Negative); Need Manual Microscopic Reviewed; Nitrate Urine Negative (Negative); Protein Urine 3+ mg/dL (Negative); RBC Urine 0-2 /hpf (0-2); Specific Grav Ur 1.032 (1.001-1.035); Squamous Epithelial Cell Urine Occasional /hpf (Few); WBC Urine 0-5 /hpf (0-3); pH Urine 5.5 (5.0-9.0)
[2024-07-29 20:50] LABS: Total Protein Urine Random > 600 mg/dL
[2024-07-29 20:54] LABS: HIV 1/2 Ab P24 Ag Result Negative (Negative)
[2024-07-29 23:03] LABS: Glucose Point of Care 85 mg/dl (65-105)
[2024-07-30] VITALS (195 sets, daily range): BP systolic 128–179; BP diastolic 71–110; PULSE 64–136; RESP 14–16; TEMP 36.8–37.7; O2SAT 94–99
[2024-07-30 03:11] LABS: Glucose Point of Care 70 mg/dl (65-105)
[2024-07-30] MEDS: OXYTOCIN 30 UNITS/NS 500 ML 30 UNITS/500 ML BAG IV CONT (05:30)
[2024-07-30] MEDS: LACTATED RINGERS 1,000 ML 125 ML IV CONT ×3 (05:30→14:42)
[2024-07-30] MEDS: fentaNYL CITRATE INJ (*CRX) 100 MCG/2 ML VIAL IV PUSH (06:08)
[2024-07-30 08:01] LABS: Glucose Point of Care 83 mg/dl (65-105)
--- NOTE | 2024-07-30 08:54 | PM.IMHP ---
H&P: HPI History of Present Illness Date/Time: 07/30/24 08:54 Chief Complaint: Here for induction of labor. Narrative: 34 y/o at 37 1/7 weeks with A1DM, now with preeclampsia based on 24 hour urine protein. Comfortable with epidural. Review of Systems Review of Systems: All systems reviewed & are unremarkable except as noted in HPI and below PMFSH Past Medical History Medical History IUP (intrauterine ), incidental Obesity Gestational diabetes Family History Family History Father Hypertension Malignant neoplasm of prostate Diabetes 1.5, managed as type 2 Mother Hypertension Diabetes 1.5, managed as type 1 Grandparent Colon cancer Other Diabetes mellitus Prostate calculus Social History Social History Smoking status: Former smoker Tobacco type: cigarettes and e-cigarettes/vaping Second hand tobacco smoke exposure: No Smoking end date: 07/29/24 Substance use: never Do You Feel Safe in your Home?: Yes Lack of Transportation: No Lack of Food: Never True Current Housing: I Have Housing Concerned About Future Housing: No Difficulty Paying Gas/Electric Bills: No Difficulty Paying for Meds: No Currently Unemployed: No Education: Associate Degree Difficulty w/ Childcare or Family Care: No Spiritual care concerns: No Meds Home Medications and Allergies Home Medications ?Medication ?Instructions ?Recorded ?Confirmed ?Type vit no.95-ferrous 1 tablet PO DAILY 07/27/24 07/29/24 History fumarate 28 mg-folic acid 800 mcg tablet () Allergies Allergy/AdvReac Type Severity Reaction Status Date / Time No Known Allergies Allergy Unknown Verified 07/29/24 18:26 Vital Signs Vital Signs - 24 hr 07/29/24 17:00 07/29/24 17:47 07/29/24 18:01 Temperature Pulse Rate 97 95 Respiratory Rate Blood Pressure 155/95 H 152/96 H Pulse Oximetry Oxygen Delivery Room Air 07/29/24 18:31 07/29/24 19:05 07/29/24 19:20 Temperature Pulse Rate 93 101 H 78 Respiratory Rate Blood Pressure 170/102 H 162/101 H Pulse Oximetry Oxygen Delivery 07/29/24 19:23 07/29/24 19:31 07/29/24 19:46 Temperature Pulse Rate 84 78 85 Respiratory Rate Blood Pressure 146/87 H 140/86 139/91 H Pulse Oximetry Oxygen Delivery 07/29/24 20:01 07/29/24 20:16 07/29/24 20:31 Temperature Pulse Rate 79 79 78 Respiratory Rate Blood Pressure 137/79 147/85 H 141/88 H Pulse Oximetry Oxygen Delivery 07/29/24 21:01 07/29/24 21:31 07/29/24 22:01 Temperature 36.6 C Pulse Rate 76 73 72 Respiratory Rate 16 Blood Pressure 141/86 H 142/89 H 135/90 Pulse Oximetry Oxygen Delivery 07/29/24 23:01 07/30/24 00:01 07/30/24 01:01 Temperature Pulse Rate 74 64 68 Respiratory Rate Blood Pressure 148/75 H 137/75 134/82 Pulse Oximetry Oxygen Delivery 07/30/24 02:03 07/30/24 03:01 07/30/24 04:01 Temperature Pulse Rate 74 79 88 Respiratory Rate Blood Pressure 139/94 H 153/89 H 148/92 H Pulse Oximetry Oxygen Delivery 07/30/24 06:19 07/30/24 06:31 07/30/24 06:59 Temperature Pulse Rate 82 76 83 Respiratory Rate Blood Pressure 179/90 H 154/90 H 163/110 H Pulse Oximetry 97 Oxygen Delivery 07/30/24 07:00 07/30/24 07:01 07/30/24 07:03 Temperature Pulse Rate 83 94 88 Respiratory Rate Blood Pressure 166/97 H 171/103 H 148/84 H Pulse Oximetry Oxygen Delivery 07/30/24 07:04 07/30/24 07:05 07/30/24 07:07 Temperature Pulse Rate 80 79 Respiratory Rate Blood Pressure 153/91 H 152/97 H Pulse Oximetry 98 Oxygen Delivery 07/30/24 07:09 07/30/24 07:11 07/30/24 07:13 Temperature Pulse Rate 81 88 74 Respiratory Rate Blood Pressure 142/97 H 134/89 142/92 H Pulse Oximetry 98 Oxygen Delivery 07/30/24 07:14 07/30/24 07:15 07/30/24 07:17 Temperature Pulse Rate 70 90 Respiratory Rate Blood Pressure 153/97 H 135/91 H Pulse Oximetry 97 Oxygen Delivery 07/30/24 07:19 07/30/24 07:21 07/30/24 07:23 Temperature Pulse Rate 75 81 74 Respiratory Rate Blood Pressure 139/80 140/85 145/85 H Pulse Oximetry 98 Oxygen Delivery 07/30/24 07:24 07/30/24 07:25 07/30/24 07:27 Temperature Pulse Rate 74 84 Respiratory Rate Blood Pressure 142/86 H 131/86 Pulse Oximetry 98 Oxygen Delivery 07/30/24 07:29 07/30/24 07:31 07/30/24 07:33 Temperature Pulse Rate 79 73 86 Respiratory Rate Blood Pressure 131/87 139/89 133/81 Pulse Oximetry 97 Oxygen Delivery 07/30/24 07:34 07/30/24 07:35 07/30/24 07:37 Temperature Pulse Rate 75 83 Respiratory Rate Blood Pressure 131/84 128/84 Pulse Oximetry 97 Oxygen Delivery 07/30/24 07:39 07/30/24 07:41 07/30/24 07:43 Temperature 37.1 C Pulse Rate 72 97 81 Respiratory Rate Blood Pressure 135/84 132/88 133/92 H Pulse Oximetry 97 Oxygen Delivery 07/30/24 07:44 07/30/24 07:49 07/30/24 07:54 Temperature Pulse Rate Respiratory Rate Blood Pressure Pulse Oximetry 98 97 98 Oxygen Delivery 07/30/24 07:59 07/30/24 08:01 07/30/24 08:04 Temperature Pulse Rate 66 Respiratory Rate Blood Pressure 129/75 Pulse Oximetry 98 97 Oxygen Delivery 07/30/24 08:09 07/30/24 08:14 07/30/24 08:16 Temperature Pulse Rate 72 Respiratory Rate Blood Pressure 129/78 Pulse Oximetry 97 96 Oxygen Delivery 07/30/24 08:19 07/30/24 08:24 07/30/24 08:29 Temperature Pulse Rate Respiratory Rate Blood Pressure Pulse Oximetry 96 96 95 Oxygen Delivery 07/30/24 08:31 07/30/24 08:34 07/30/24 08:39 Temperature Pulse Rate 70 Respiratory Rate Blood Pressure 128/73 Pulse Oximetry 94 94 Oxygen Delivery 07/30/24 08:44 07/30/24 08:46 07/30/24 08:49 Temperature Pulse Rate 74 Respiratory Rate Blood Pressure 139/71 Pulse Oximetry 94 98 Oxygen Delivery Exam Const: Orientation/consciousness: patient oriented x3 Other: Well-developed, well-nourished female in no acute distress. Neck: Thyroid: thyroid normal Lymphatic: no lymphadenopathy noted (in neck, axilla or inguinal nodes) Resp: Effort & Inspection: normal respiratory effort Auscultation: clear to auscultation bilaterally Cardio: Rate: regular rate Rhythm: regular rhythm Heart sounds: S1 normal heart sound present and S2 normal heart sound present GI: Other: ABD: Soft, nontender, nondistended, gravid. NST reactive. TOCO: contractions every 2-5 min. No guarding or rebound tenderness. No hepatosplenomegaly. : General: Yes no CVA tenderness Other: Cervix 3/50/-2. AROM with clear fluid. Vertex. IUPC placed. Back/Spine/Pelvis: Back: no CVA tenderness Skin: General skin exam: normal color and no rashes or lesions noted Neuro: General: patient oriented x3 Extrem: Other: Extremities: nontender with no edema Psych: Mental Status: mental status grossly normal Affect: normal affect H&P: Results Labs Labs: Short CBC 07/29/24 Range/Units 18:48 WBC 9.4 (4.5-10.0) K/mm3 Hgb 11.4 L (12.0-15.0) g/dL Hct 33.6 L (37.0-47.0) % Plt Count 189 (150-375) k/mm3 BMP 07/29/24 18:48 Sodium 132 L Potassium 3.8 Chloride 108 H Carbon Dioxide 19 L BUN 14 Creatinine 0.64 L Glucose 127 H Calcium 9.2 Liver Function 07/29/24 Range/Units 18:48 Total Bilirubin 0.4 (0.2-1.3) mg/dL AST 30 (14-36) U/L ALT 17 (6-35) U/L Alkaline Phosphatase 148 H (38-126) U/L Albumin 3.4 L (3.5-5.1) g/dL Urine 07/29/24 Range/Units 18:45 Urine Color Dark yellow (Yellow) Urine Appearance Clear (Clear) Urine pH 5.5 (5.0-9.0) Ur Specific [place] 1.032 (1.001-1.035) Urine Protein 3+ H (Negative) mg/dL Urine Glucose (UA) Negative (Negative) mg/dL Assessment and Plan Assessment and plan (1) Term : Code(s): Z34.90 - Encounter for supervision of normal , unspecified, unspecified trimester Status: Acute Assessment and Plan: A: IUP at 37 1/7 weeks with preeclampsia, A1DM, here for induction of labor. P: S/p Cervidil, now receiving oxytocin. Anticipate . BP stable currently. Glc great. (2) Gestational diabetes: Code(s): O24.419 - Gestational diabetes mellitus in , unspecified control Status: Acute (3) Preeclampsia: Code(s): O14.90 - Unspecified pre-eclampsia, unspecified trimester Status: Acute
[2024-07-30 11:25] LABS: Glucose Point of Care 75 mg/dl (65-105)
--- NOTE | 2024-07-30 12:35 | PM.OBPNLAB ---
Pain Control Date/time seen: 07/30/24 12:35 Comfortable. Pelvic Exam Dilation (cm): 4 Effacement (%): 80 station: -2 Contractions Contraction frequency: 3 Status status: Category l Assessment and Plan Comments: Continue labor. Continue to watch bp and glc.
[2024-07-30] MEDS: ACETAMINOPHEN 500 MG TABLET 1000 MG PO (12:36)
[2024-07-30] MEDS: MAGNESIUM SULF 4 GM/WATER100ML 4 GM/100 ML BAG IVPB (13:07)
[2024-07-30] MEDS: MAGNESIUM SULF 20GM/WATER500ML 500 ML 50 MG IV CONT ×2 (13:42→23:47)
[2024-07-30 15:07] LABS: Glucose Point of Care 78 mg/dl (65-105)
--- NOTE | 2024-07-30 16:05 | S_PTH ---
PATIENT: Kiara Amin LOC: [facility] U#:[id number] AGE/SX: 34/F ROOM: 285 RE07/29/[address]: Dimitris Johnson MD : 1990 BED: 00 DIS: 08/01/2024 SPEC #: [id number] RECD: 07/31/24 07:56 STATUS: ADRIAN REQ #: [id number] RAYMUNDO: 07/30/24 16:[address]: Dimitris Johnson DEPT: [facility] Surgical RECD BY: Kenna Del Rosario ENTERED: 07/31/24 07:56 SP TYPE: Surgical OTHR DR: Romeo Al MD Tissues: A - Placenta Procedures: Hematoxylin and Eosin Stain Gross and Microscopic Level 5
--- NOTE | 2024-07-30 16:21 | PM.OBPRVD ---
OB - Vaginal Delivery Note Procedure Delivery date: 07/30/24 Events: Gestational Diabetes and Preeclampsia w severe features Induction method: Per Cervidil Protocol Delivery augmentation: Rupture of Membranes and Pitocin Delivery monitor: External FHT, External Uterine and Internal Uterine Route of delivery: Episiotomy description: None Laceration Description: Perineal - 2nd Degree Delivery repair: vicryl (3-0) Specimen: Yes (Cord blood, placenta) Quantitative Blood Loss (ml): 320 Anesthesia type: Epidural Disposition: PACU Complications: None Narrative: 34 y/o at 37 1/7 weeks gestation who presented to the hospital for induction of labor. Cervidil was placed overnight, withdrawn the next morning. Oxytocin was administered intravenously. Amniotomy was performed with return of clear fluid. She received an epidural for pain control. Blood glucose was normal throughout labor. She was given magnesium sulfate IV for bp in the severe range. Her labor progressed and her cervix dilated completely. She pushed with good effort and delivered the 's head to the perineum, followed by the body. The nose and mouth were bulb suctioned. After a delay, the cord was clamped and cut. The was handed off the field. Cord blood was collected. The placenta delivered spontaneously and was grossly normal in appearance. The usual 3 vessel cord was noted. A second degree midline perineal laceration was sustained. This was reapproximated using 3 0 Vicryl in the usual layered fashion. Excellent hemostasis resulted as did excellent reapproximation of the normal anatomy. Needle and instrument counts were correct. The patient was taken to recovery room in stable condition. The infant went to the nursery in stable condition. I was present and scrubbed for the entire delivery. Renick Baby Date of : 07/30/24 Time of : 16:02 Gestational Age by Date: 37 Infant gender: Female Weight (pounds): 6 Weight (ounces): 8 presentation: vertex position: Left Occiput Anterior Placenta delivery description: Spontaneous and Normal Configuration Cord Vessel Description: 3 Vessels and Delayed Cord Clamping score one minute: 7 score five minutes: 8
--- NOTE | 2024-07-30 16:25 | PM.OBDSVD ---
DS: Admitting Diagnosis Discharge Date 08/01/24 Admitting Diagnosis IUP at 37 1/7 weeks A1DM Preeclampsia DS: Discharge Diagnosis Discharge Diagnosis (1) (normal spontaneous vaginal delivery): Code(s): O80 - Encounter for full-term uncomplicated delivery Status: Acute (2) Gestational diabetes: Code(s): O24.419 - Gestational diabetes mellitus in , unspecified control Status: Acute (3) Preeclampsia: Code(s): O14.90 - Unspecified pre-eclampsia, unspecified trimester Status: Acute OB - DS: Summary OB Procedures : None and PIH Mgmt OB Procedures Intrapartum: Spontaneous Vag Delivery OB Procedures: : None Peripartum Data Laceration Description: Perineal - 2nd Degree Episiotomy description: None Time Spent with Patient Time attestation: Total time spent providing and/or coordinating discharge services: DS: Data Data Completed and Pending Labs on day of discharge: Labs from last 24 hours 07/30/24 07/30/24 07/30/24 15:04 11:22 07:43 WBC RBC Hgb Hct MCV MCH MCHC RDW Plt Count MPV Immature Gran % (Auto) Neut % (Auto) Lymph % (Auto) [place] % (Auto) Eos % (Auto) Baso % (Auto) Lymph # (Auto) [place] # (Auto) Eos # (Auto) Baso # (Auto) Abs Immat Gran (auto) Absolute Neuts (auto) Absolute Nucleated RBC Nucleated RBC % Sodium Potassium Chloride Carbon Dioxide Anion Gap BUN Creatinine Estim Creat Clear Calc Estimated GFR Glucose POC Capillary Glucose 78 75 83 Uric Acid Calcium Total Bilirubin AST ALT Alkaline Phosphatase Total Protein Albumin Urine Color Urine Appearance Urine pH Ur Specific [place] Urine Protein Urine Glucose (UA) Urine Ketones Ur Blood (Man) Urine Nitrate Urine Bilirubin Urine Urobilinogen Add Ur Microanalysis Leukocyte Esterase Rfl Urine RBC Urine WBC Ur Squamous Epith Cells Urine Bacteria Urine Casts U Random Total Protein Urine Creatinine Protein/Creat Ratio 2 Syphilis IgG/IgM Ab HIV 1&2 Ab/P24 Ag 4thGn Blood Type Antibody Screen Antibody Identification Antigen Identification ELPIDIO, IgG Interpret ELPIDIO, Poly Interpret ELPIDIO, Complement Interp 07/30/24 07/29/24 07/29/24 03:07 22:59 18:48 WBC 9.4 RBC 3.81 L Hgb 11.4 L Hct 33.6 L MCV 88.2 MCH 29.9 MCHC 33.9 RDW 13.4 Plt Count 189 MPV 11.8 H Immature Gran % (Auto) 0.4 Neut % (Auto) 70.1 Lymph % (Auto) 21.4 [place] % (Auto) 7.6 Eos % (Auto) 0.3 Baso % (Auto) 0.2 Lymph # (Auto) 2.02 [place] # (Auto) 0.7 H Eos # (Auto) 0.0 Baso # (Auto) 0.0 Abs Immat Gran (auto) 0.04 H Absolute Neuts (auto) 6.6 Absolute Nucleated RBC 0.000 Nucleated RBC % 0.0 Sodium 132 L Potassium 3.8 Chloride 108 H Carbon Dioxide 19 L Anion Gap 5 BUN 14 Creatinine 0.64 L Estim Creat Clear Calc Not Reportable Estimated GFR > 60 Glucose 127 H POC Capillary Glucose 70 85 Uric Acid 6.1 Calcium 9.2 Total Bilirubin 0.4 AST 30 ALT 17 Alkaline Phosphatase 148 H Total Protein 6.1 L Albumin 3.4 L Urine Color Urine Appearance Urine pH Ur Specific [place] Urine Protein Urine Glucose (UA) Urine Ketones Ur Blood (Man) Urine Nitrate Urine Bilirubin Urine Urobilinogen Add Ur Microanalysis Leukocyte Esterase Rfl Urine RBC Urine WBC Ur Squamous Epith Cells Urine Bacteria Urine Casts U Random Total Protein Urine Creatinine Protein/Creat Ratio 2 Syphilis IgG/IgM Ab Non-reactive HIV 1&2 Ab/P24 Ag 4thGn Negative Blood Type A Negative Antibody Screen Positive Antibody Identification Passive Due to RH Imm Glob Antigen Identification Not Reportable ELPIDIO, IgG Interpret Neg ELPIDIO, Poly Interpret Negative ELPIDIO, Complement Interp Not Performed 07/29/24 18:45 WBC RBC Hgb Hct MCV MCH MCHC RDW Plt Count MPV Immature Gran % (Auto) Neut % (Auto) Lymph % (Auto) [place] % (Auto) Eos % (Auto) Baso % (Auto) Lymph # (Auto) [place] # (Auto) Eos # (Auto) Baso # (Auto) Abs Immat Gran (auto) Absolute Neuts (auto) Absolute Nucleated RBC Nucleated RBC % Sodium Potassium Chloride Carbon Dioxide Anion Gap BUN Creatinine Estim Creat Clear Calc Estimated GFR Glucose POC Capillary Glucose Uric Acid Calcium Total Bilirubin AST ALT Alkaline Phosphatase Total Protein Albumin Urine Color Dark yellow Urine Appearance Clear Urine pH 5.5 Ur Specific [place] 1.032 Urine Protein 3+ H Urine Glucose (UA) Negative Urine Ketones 1+ H Ur Blood (Man) Negative Urine Nitrate Negative Urine Bilirubin Negative Urine Urobilinogen 1.0 Add Ur Microanalysis Reviewed Leukocyte Esterase Rfl Negative Urine RBC 0-2 Urine WBC 0-5 Ur Squamous Epith Cells Occasional Urine Bacteria None seen Urine Casts 6-10 U Random Total Protein > 600 Urine Creatinine 244.6 Protein/Creat Ratio 2 2.45 H Syphilis IgG/IgM Ab HIV 1&2 Ab/P24 Ag 4thGn Blood Type Antibody Screen Antibody Identification Antigen Identification ELPIDIO, IgG Interpret ELPIDIO, Poly Interpret ELPIDIO, Complement Interp Discharge Plan Discharge Attending physician on discharge: Dimitris Johnson Discharging Clinician: Dimitris Johnson Patient Disposition: Home Activity: pelvic rest Diet: regular Discharge Instructions: Call or return if temperature above 100.4? F, increased abdominal pain, increased vaginal bleeding or any new problems. Patient Language: Greek Stand Alone Forms: General Discharge Information Follow-up/Referrals: Dimitris Johnson MD [Physician] - 6 Weeks Discharge Medications: New ibuprofen 600 mg tablet 600 mg PO Q6H PRN (Reason: cramps) Qty: 30 0RF ferrous sulfate 325 mg (65 mg iron) tablet 325 mg PO DAILY Qty: 30 0RF nifedipine [Procardia XL] 60 mg tablet extended release 24hr 60 mg PO DAILY Qty: 30 1RF Continued PNV cmb#95-ferrous fumarate-FA [] 28 mg iron- 800 mcg tablet 1 tablet PO DAILY Date of admission: 07/29/24 16:30 Primary Care Provider: Romeo Al Admitting Provider: Dimitris Johnson Attending physician on admission: Dimitris Johnson Condition: Stable
[2024-07-30] MEDS: OXYTOCIN 30 UNITS/NS 500 ML 30 UNITS/500 ML BAG 125 UNITS IV CONT (16:29)
[2024-07-30] MEDS: NIFEdipine 30 MG TAB.ER.24 PO (18:35)
[2024-07-30] MEDS: IBUPROFEN 600 MG TABLET PO (18:35)
[2024-07-30] MEDS: BENZOCAINE 20% AER SPR (*SP) 56 GM CAN 1 SPRAY TOPICAL (19:13)
[2024-07-30] MEDS: WITCH HAZEL 40 PADS 1 PAD TOPICAL (19:13)
--- NOTE | 2024-07-30 19:32 | OBPPTRN ---
Patient transferred to post room #285 via wheelchair. Support person present. Oriented to unit, room, information board, rooming in, admission packet and security measures. Patient verbalizes understanding.
[2024-07-31] VITALS (8 sets, daily range): BP systolic 124–160; BP diastolic 78–99; PULSE 91–110; RESP 16–20; TEMP 36.4–36.8; O2SAT 97–100
[2024-07-31 05:13] LABS: Hematocrit 29.5 % (37.0-47.0); Hemoglobin 9.7 g/dL (12.0-15.0)
[2024-07-31] MEDS: LACTATED RINGERS 1,000 ML 75 ML IV CONT (08:10)
[2024-07-31] MEDS: LACTATED RINGERS 1,000 ML 75 ML (08:18)
--- NOTE | 2024-07-31 08:42 | P.PNOB_ITS ---
OB - PN: Subj Subjective Date/time seen: 07/31/24 08:42 Narrative: Pain OK. OB - PN: Obj Data Labs 07/31/24 04:13 07/29/24 18:48 Labs: Laboratory Results - last 24 hr 07/30/24 07/30/24 07/31/24 11:22 15:04 04:13 Hgb 9.7 L Hct 29.5 L POC Capillary Glucose 75 78 Blood Type A Negative Antibody Screen TNP Screen Negative Baby's Blood Type A pos Baby's ELPIDIO Positive Doses of RhIg Required 1 OB - PN A/P Plan day: 1 Comments: A: PPD#1, doing well. Preeclampsia, resolving. A1DM, s/p delivery. P: Continue Procardia XL 30 mg daily. Stop magnesium today. Routine care. Plan home tomorrow. Exam 2 Psych: Other: AVSS (BP improved after Procardia XL 30 mg) Urine output >5L. ABD soft, nontender, fundus firm EXT nontender NEURO: DTR 1+/4
[2024-07-31] MEDS: DOCUSATE SODIUM 100 MG CAPSULE PO ×2 (08:48→17:28)
[2024-07-31] MEDS: NIFEdipine 30 MG TAB.ER.24 PO (08:48)
[2024-07-31] MEDS: MULTIVIT/MIN/PREN/FOL AC/IRON TABLET 1 TAB PO (08:48)
[2024-07-31] MEDS: POLYSACCHARIDE IRON COMPLEX 150 MG CAPSULE PO ×2 (08:48→17:28)
[2024-07-31] MEDS: MAGNESIUM SULF 20GM/WATER500ML 500 ML 50 MG IV CONT (10:02)
[2024-07-31] MEDS: RHO(D) IMMUNE GLOBULIN 300 MCG/2 ML SYRINGE IM (10:41)
--- NOTE | 2024-07-31 10:50 | PC.NURSE ---
Introductions were made, then consulted with patient to assess needs related to . Discussed with mother her plans to feed her and the experience so far. She has been on Mag Sulfate and is not feeling well. She has a hospital breast pump but has not used it. Baby has been bottle feeding. Mom states that she may want to pump and bottle feed if she feels up for it, but doesn't desire to put baby to breast. Encouraged her to call out for assistance with the pump when she's ready. Resources provided for inpatient and outpatient services with the feeding sheet, mom/baby guide and name written on the communication board. Mother voiced understanding of information and will call if there is a request for assistance. Reported to the Primary RN.?
--- NOTE | 2024-07-31 17:30 | PC.NURSE ---
Patient set up with a breast pump due to her choice to pump and bottle feed. Mother was shown proper sizing and placement of flanges, pump settings, and cleaning of pump parts. Recommended 15 minutes of pumping both breasts simultaneously. Patient is aware that pumping should not hurt. She is encouraged to use the highest comfortable suction setting, gradually increasing the level as she pumps. Patient provided with a basin for cleaning parts between uses. Breast milk storage guidelines reviewed. Discussed use of expressed breast milk by placing drops of milk in baby?s mouth with a clean finger, bottle feeding, or mixing colostrum with a small volume of formula and feeding with a bottle.? Primary RN updated.??
--- NOTE | 2024-07-31 17:48 | WPDANLDPN2 ---
Anes-Prog Note L&D Date/Time: 07/31/24 17:48 Neuro status: Neuro function grossly intact. Cardiovascular status: normal Respiratory status: normal Airway patency: baseline Mental status: baseline Post-Op hydration status: normal Vital Signs: Last Vital Signs Temp 36.5 C 07/31/24 15:13 Pulse 107 H 07/31/24 15:13 Resp 20 07/31/24 15:13 BP 137/94 H 07/31/24 15:13 Pulse Ox 98 07/31/24 15:13 O2 Del Method Room Air 07/29/24 17:00 Pain score (VAS): 0 I/O: Intake & Output 07/31/24 07/31/24 07/31/24 07:59 15:59 23:59 Intake Total 900 1744.2 Output Total 1200 4650 Balance -300 -2905.8 Post-procedural complaints: none Patient feedback: Patient satisfied with anesthetic care.
[2024-07-31] MEDS: LABETALOL HCL 100 MG TABLET 200 MG PO (22:08)
[2024-08-01 00:40] VITALS: BP 141/91; PULSE 86; RESP 18; TEMP 36.8; O2SAT 100
[2024-08-01 04:10] VITALS: BP 152/96; PULSE 78; RESP 18; O2SAT 99
[2024-08-01 08:05] VITALS: BP 152/95; PULSE 99; RESP 16; TEMP 36.9; O2SAT 99
[2024-08-01] MEDS: NIFEdipine 30 MG TAB.ER.24 PO ×2 (08:45→08:55)
[2024-08-01] MEDS: DOCUSATE SODIUM 100 MG CAPSULE PO (08:45)
[2024-08-01] MEDS: POLYSACCHARIDE IRON COMPLEX 150 MG CAPSULE PO (08:45)
[2024-08-01] MEDS: MULTIVIT/MIN/PREN/FOL AC/IRON TABLET 1 TAB PO (08:45)
--- NOTE | 2024-08-01 08:51 | P.PNOB_ITS ---
OB - PN: Subj Subjective Date/time seen: 08/01/24 08:51 Narrative: Pain OK. Would like to go home. OB - PN: Obj Data Labs 07/31/24 04:13 07/29/24 18:48 Labs: Laboratory Results - last 24 hr 07/31/24 04:13 Blood Type A Negative Antibody Screen TNP Screen Negative Baby's Blood Type A pos Baby's ELPIDIO Positive Doses of RhIg Required 1 OB - PN A/P Plan Comments: A: PPD#2, doing well. Preeclampsia, resolving. BP still a little elevated. P: Home to f/u 6 weeks. Increase Procardia XL 30 to 60 mg. F/u bp check in 1-2 days. Exam 2 Psych: Other: AVSS ABD soft, nontender, fundus firm EXT nontender
--- NOTE | 2024-08-01 09:10 | PC.NURSE ---
Met with patient regarding pumping needs. She states that she did pump a few times and got some colostrum but that she prefers to stick with bottle feeding formula at this time. Dad asked when it would be 'too late' for her to initiate pumping. Reviewed that she can still attempt to pump at any time or when her milk 'comes in' but that the earlier she starts, the more likely it will be that she produces a good supply. Patient does have a breast pump at home in case she decides to pump. She is encouraged to call the office if she has any questions when she gets home. Patient verbalizes understanding and declines having any further questions or concerns. RN updated.
--- NOTE | 2024-08-01 10:00 | PC.NURSE ---
1000- Pt stated she wanted tdap. Once entering room to administer pt declined and stated she may decide to get outpatient
[2024-08-01] MEDS: SERTRALINE HCL 50 MG TABLET PO (12:36)
[2024-08-01 12:42] VITALS: BP 154/92; PULSE 110; RESP 18; TEMP 37.4; O2SAT 97
[2024-08-02 09:02] VITALS: BP 154/99; PULSE 94; RESP 18; O2SAT 98
[2024-08-02 09:34] LABS: Ur Ttl Prot Creatinine Ratio > 2.45 mg/mg (0-0.20)
--- NOTE | 2024-08-02 12:11 | PC.NURSE ---
repeated BP after Procardia taken at 1030 154/98, call to Dr. Johnson, message left on pager, notified of BP's and pt. is not symptomatic
--- NOTE | 2024-08-02 12:14 | PC.NURSE ---
Dr. Johnson ret'd call, requests that Kiara come to office tuesday or tuesday for BP check, Kiara notified and voices understanding
== END 2024-08-01 17:27 | disposition home or self-care (01) | DRG 807 ==
LOC: ANHLDR 07-30 16:26 → ANHOB2 07-30 19:34
PROVIDERS: Admitting Provider Obstetrics & Gynecology; PCP Family Medicine Adolescent Medicine; Visit Provider Obstetrics & Gynecology
DX: O24.429 Gestational diabetes mellitus in childbirth, unspecified control (principal); Z37.0 Single live birth; Z3A.37 37 weeks gestation of pregnancy; O14.14 Severe pre-eclampsia complicating childbirth; O70.1 Second degree perineal laceration during delivery
CPT/HCPCS: 36415; 80053; 81001; 82570; 82948; 84156; 84550; 85014; 85018; 85025; 85461; 86593; 86703; 86850; 86880; 86900; 86901; 86902; 88307; 90384; A9270; G0432; J2590; J2790; J2795; J3010; J3475; J7120

== ENCOUNTER 2024-08-06 10:30 | Outpatient (CLI) | payer BC, SELFPAY ==
[2024-08-06] VITALS (8 sets, daily range): BP systolic 129–153; BP diastolic 75–96; PULSE 78–88
[2024-08-06 11:23] LABS: Basophils Percent Auto 0.4 % (0.2-1.2); Eosinophils Absolute Auto 0.2 K/mm3 (0-0.3); Eosinophils Percent Auto 1.6 % (0-4.4); Hematocrit 38.4 % (37.0-47.0); Hemoglobin 12.8 g/dL (12.0-15.0); Immature Granulocyte Absolute 0.09 K/mm3 (0.00-0.031); Immature Granulocyte Percent A 0.8 % (0-0.5); Lymphocytes Absolute Auto 2.49 K/mm3 (0.9-3.2); Lymphocytes Percent Auto 23.5 % (18.3-44.2); Mean Corpuscular HGB Conc 33.3 g/dl (32-36); Mean Corpuscular Volume 89.9 fl (80-100); Mean Platelet Volume 9.5 fl (7.4-10.4); Monocytes Absolute Auto 0.7 K/mm3 (0.1-0.6); Monocytes Percent Auto 6.4 % (2.6-8.5); Neutrophils Absolute Auto 7.1 K/mm3 (1.3-6.7); Neutrophils Percent Auto 67.3 % (45.5-73.1); Platelet Count Result 279 k/mm3 (150-375); Red Blood Count 4.27 M/mm3 (4.2-5.4); Red Cell Distribution Width 13.7 % (11.5-14.5); White Blood Count 10.6 K/mm3 (4.5-10.0)
[2024-08-06 11:45] LABS: Alanine Aminotransferase 62 U/L (6-35); Albumin Level 4.1 g/dL (3.5-5.1); Alkaline Phosphatase 128 U/L (38-126); Anion Gap 9 mmol/L (4-12); Aspartate Amino Transferase 34 U/L (14-36); Bilirubin,Total 0.4 mg/dL (0.2-1.3); Blood Urea Nitrogen 13 mg/dL (7-17); Calcium 9.5 mg/dL (8.4-10.2); Carbon Dioxide 21 mmol/L (22-30); Chloride 108 mmol/L (98-107); Estimated Glomerular Filt Rate > 60; Glucose 92 mg/dL (65-110); Potassium 4.2 mmol/L (3.4-5.0); Sodium 138 mmol/L (137-145); Total Protein 7.2 g/dL (6.3-8.2); Uric Acid 5.4 mg/dL (2.5-7.5)
--- NOTE | 2024-08-06 11:56 | PC.NURSE ---
Dr. Roberto Roldan update that the pt having headache of 3/10 as well as elevated blood pressure. Pt reports having 169/100 at home. BP reported from assessment here. MD ordered pt start 200mg Labetalol BID. 1st dose to be given here. okay with pt going home after 1 hour blood pressure recheck.
--- NOTE | 2024-08-06 12:22 | P.PNOB_ITS ---
OB - Triage/Final Diagnosis Visit Information Date of evaluation: 08/06/24 Reason for evaluation: other (htn) Comments/Additional reasons for admission: I have assessed the risk for this patient, Kiara Amin, and determined that she would benefit from observation care. Evaluation Laboratory results: Laboratory Tests 08/06/24 10:42 WBC 10.6 H RBC 4.27 Hgb 12.8 D Hct 38.4 MCV 89.9 MCH 30.0 MCHC 33.3 RDW 13.7 Plt Count 279 MPV 9.5 Immature Gran % (Auto) 0.8 H Neut % (Auto) 67.3 Lymph % (Auto) 23.5 [place] % (Auto) 6.4 Eos % (Auto) 1.6 Baso % (Auto) 0.4 Lymph # (Auto) 2.49 [place] # (Auto) 0.7 H Eos # (Auto) 0.2 Baso # (Auto) 0.0 Abs Immat Gran (auto) 0.09 H Absolute Neuts (auto) 7.1 H Absolute Nucleated RBC 0.000 Nucleated RBC % 0.0 Sodium 138 Potassium 4.2 Chloride 108 H Carbon Dioxide 21 L Anion Gap 9 BUN 13 Creatinine 0.59 L Estim Creat Clear Calc Not Reportable Estimated GFR > 60 Glucose 92 Uric Acid 5.4 Calcium 9.5 Total Bilirubin 0.4 AST 34 ALT 62 H Alkaline Phosphatase 128 H Total Protein 7.2 Albumin 4.1 Vital signs: Vital Signs - 24 hr 08/06/24 10:55 08/06/24 11:00 08/06/24 11:32 Pulse Rate 85 80 82 Blood Pressure 153/96 H 151/89 H 149/95 H 08/06/24 11:45 08/06/24 12:00 08/06/24 12:15 Pulse Rate 88 79 86 Blood Pressure 149/90 H 145/91 H 144/84 H
[2024-08-06] MEDS: LABETALOL HCL 100 MG TABLET 200 MG PO (12:29)
== END 2024-08-06 13:54 | disposition home or self-care (01) ==
LOC: ANHOBOP 10:34 → ANHOBPP 10:35
PROVIDERS: PCP Family Medicine Adolescent Medicine; Visit Provider Obstetrics & Gynecology
DX: O13.9 Gestational [pregnancy-induced] hypertension without significant proteinuria, unspecified trimester (principal); Z3A.00 Weeks of gestation of pregnancy not specified
CPT/HCPCS: 36415; 80053; 84550; 85025; 99199; A9270